=== PATIENT | male | born 1950 | race Caucasian/White ===

== ENCOUNTER 2021-01-24 08:20 | Outpatient (REF) | payer OTHER, SELFPAY ==
[2021-01-24 19:02] LABS: Anion Gap 8.7 mmol/L (3-11); BUN 15 mg/dL (7-18); CO2 28.3 mmol/L (21.0-32.0); Calcium 9.5 mg/dL (8.5-10.1); Calculated LDL 174 mg/dL (<100); Chloride 106 mmol/L (98-107); Cholesterol 248 mg/dL (<200); Glucose 102 mg/dL (74-106); HDL Cholesterol 38 mg/dL (40-60); Potassium 4.5 mmol/L (3.5-5.1); Sodium 143 mmol/L (136-145); Triglyceride 182 mg/dL (<150)
[2021-01-25 17:48] LABS: PSA, Screening <0.1 ng/mL (0.0-6.5)
== END 2021-01-24 08:21 | disposition home or self-care (01) ==
LOC: NCHCN 08:20
PROVIDERS: PCP Internal Medicine; Visit Provider Internal Medicine
DX: I10 Essential (primary) hypertension (principal); E78.5 Hyperlipidemia, unspecified; Z85.46 Personal history of malignant neoplasm of prostate; Z12.5 Encounter for screening for malignant neoplasm of prostate
CPT/HCPCS: 80048; 80061; 84153

== ENCOUNTER → 2022-12-09 07:45 | Outpatient (BNVA) | payer MEDICARE, SELFPAY | PROVIDERS: PCP Internal Medicine; Referring Provider Internal Medicine; Visit Provider Surgery | DX: K40.90 Unilateral inguinal hernia, without obstruction or gangrene, not specified as recurrent (principal) | CPT/HCPCS: 99202; 99203 ==

== ENCOUNTER 2022-12-17 08:38 | Day surgery (SDC) | payer MEDICARE, SELFPAY ==
[2022-12-17] VITALS (11 sets, daily range): BP systolic 99–142; BP diastolic 45–70; PULSE 51–69; RESP 10–22; TEMP 36–36.4; O2SAT 93–98; BMI 29.5
--- NOTE | 2022-12-17 06:24 | W.ANESPRE ---
General Info Date of Service Date Performed: 12/17/22 Height: 5 ft 4 in Weight: 78.018 kg Body Mass Index (BMI): 29.5 Surgical Procedure: Operation Date: 12/17/22 12:25 Proposed Procedure Side Surgeon p Herniorrhaphy Inguinal w/Mesh Left Radha Mohamud MD Meds Allergies and Home Medications Allergies Allergy/AdvReac Type Severity Reaction Status Date / Time No Known Allergies Allergy Unverified 12/16/22 10:17 Home Medication Medication Instructions Recorded atorvastatin 80 mg tablet (Lipitor) 80 mg PO DAILY 09/29/15 omega-3s 720 mg-dha 300 mg-epa 360 3 tab PO DAILY 09/29/15 mg-fish oil 1,200 mg capsule (Fish Oil) alprazolam 0.5 mg tablet 0.5 mg PO BID PRN 12/08/22 diazepam 10 mg tablet 10 mg PO DAILY PRN 12/08/22 losartan 50 mg tablet 50 mg PO DAILY 12/08/22 Current Visit Medications: Current Medications Generic Name Dose Route Start Last Admin Trade Name Renee PRN Reason Stop Dose Admin Acetaminophen 1,000 mg 12/17/22 06:00 Acetaminophen 500 Mg Tab PO 12/17/22 23:59 PREOP BEV Celecoxib 200 mg 12/17/22 06:00 Celecoxib 200 Mg Cap PO 12/17/22 23:59 PREOP BEV Gabapentin 600 mg 12/17/22 06:00 Gabapentin 300 Mg Cap PO 12/17/22 23:59 PREOP BEV Ringer's Solution 1,000 mls @ 80 mls/hr 12/17/22 06:00 IV 12/17/22 23:59 INFUSION BEV Cefazolin Sodium/Dextrose 2 gm in 50 mls @ 100 mls/hr 12/17/22 06:00 Ancef Duplex IVPB 12/17/22 23:59 PREOP BEV IV Miscellaneous Supplies 1 each 12/17/22 06:00 Iv Access IV 12/17/22 23:59 DIRECTED BEV Sodium Chloride 0 ml 12/17/22 06:00 Normal Saline Flush 10 Ml Syr IV 12/17/22 23:59 PRN PRN Sodium Chloride 0 ml 12/17/22 06:00 Normal Saline 10 Ml Vial IJ 12/17/22 23:59 DIRECTED PRN Sterile Water 0 ml 12/17/22 06:00 Water,Injection,Sterile 10 Ml Vial IJ 12/17/22 23:59 DIRECTED PRN PFSH Active Problems Active Problems: Problem Status Onset Code Left inguinal hernia K40.90 History of prostate cancer Z85.46 Hypertension I10 Former smoker Z87.891 Lower urinary tract symptoms R39.9 Medical History Medical History Anxiety and depression Chronic insomnia Chronic pain DJD (degenerative joint disease) of knee Erectile dysfunction Hyperlipidemia Pipe smoker Surgical History Surgical History History of prostatectomy Tobacco Smoking/Tobacco Use Status: Former Tobacco Use Alcohol Alcohol Intake: current Alcohol intake frequency: holidays/special occasions only Substance Use Substance use: Never Substance use type: does not use Vital Signs and Lab Results Vital Signs Most Recent Vital Signs in EMR: Temp Pulse Resp BP Pulse Ox 36.4 C L 65 16 142/55 H 97 12/17/22 09:07 12/17/22 09:07 12/17/22 09:07 12/17/22 09:07 12/17/22 09:07 Lab Results Blood Type / Crossmatch: No Data to Display Complete Blood Count: No Data to Display Complete Metabolic Panel: No Data to Display Liver Function Panel: No Data to Display Coagulation Panel: No Data to Display Cardiac Panel: No Data to Display Arterial Blood Gas: No Data to Display Venous Blood Gas: No Data to Display Pancreas Panel: No Data to Display Thyroid Panel: No Data to Display Infectious Disease: No Data to Display Blood Cultures: No Data to Display Toxicology Panel: No Data to Display Anesthesia Assessment and Plan Anesthesia History Personal History: No History of Anesthesia Complications Family History: No Family History of Anesthesia Complications Exercise Tolerance Exercise Tolerance: Metabolic Equivalents>4 Cardiac & Pulmonary Exam Cardiac Exam: Normal S1/S2 Heart Sounds Pulmonary Exam: Clear Bilateral Breath Sounds Implantable Cardiac Device Does patient have a Pacemaker or an ICD?: No Airway Exam Known Difficult Airway: No Mallampati Class: 3 Mouth Opening: Narrow (< 3cm) Thyromental Distance: Greater than 3 cm Neck Range of Motion: Full ROM Neck Circumference: Normal Teeth Condition: Normal Dentition and Removable Dentures/Plates Upper Airway Comments: many implants ASA Classification ASA Score: ASA 2 Emergency Case?: No NPO Status NPO Status: NPO Clears >2 hours, Solids >8 hours Anesthesia Plan Resuscitation Status: Full Code Anesthesia Technique: General Anesthesia Airway Planned: LMA Pain Management: Surgeon and patient request nerve block Monitors Used: Standard Monitors Preoperative Comments:: 72 yo male for left inguinal hernia repair. Sig PMHx: HTN (losartan), former smoker, anxiety/depression (alprazolam), prostatectomy, occ EtOH.
--- NOTE | 2022-12-17 06:52 | W.PM.PROGNOT ---
Date of Service Date of service: 12/17/22 Time of Service: 12:07 Assessment and Plan Assessment and plan (1) Left inguinal hernia: Status: Acute Assessment and plan: Oh is a pleasant 72-year-old gentleman with a left inguinal hernia which has progressively gotten larger and is starting to cause him more pain.? He denies any fevers, chills, nausea, vomiting or changes in bowel habits.? He has a past medical history of hypertension, hyperlipidemia and prostate cancer.? He had no issues with anesthesia during his prostatectomy.? He does not have a history of heart attacks or strokes.? He has no chest pain or palpitations.? He does not get short of breath with activity. Using a pamphlet we went over the pathophysiology of hernias as well as the repair.? We reviewed the risks, benefits and complications of the procedure.? After our discussion the patient had a good understanding of the procedure as well as the possible complications.? I supplied him with information regarding the surgery as well as the postop course and restrictions.? Risks, benefits and complications have been reviewed. Complications include but are not limited to bleeding, infection, injury to vas, vessels and nerves, injury to bowel, recurrence (3-5%), chronic pain and adverse reaction to medications. Questions were entertained and answered to their satisfaction and they wished to proceed. Subjective Subjective Interval history since last seen: Oh was seen in [facility] prior to his surgery. He is doing well. He has not had any new symptoms. He does not have any nausea or vomiting. He has not had any chest pain, palpitations or shortness of breath. We again reviewed the procedure in detail as well as the risks, benefits and complications. He asked questions which were answered to his flexion. Exam Resp Effort & Inspection: normal respiratory effort GI Inspection: visible herniation (left inguinal) Palpation: hernia (LIH- area marked) Time Spent with Patient Time Spent with Patient: <25 minutes Time was spent: counseling the patient
--- NOTE | 2022-12-17 06:52 | W.PM.OP ---
Date of service: 12/17/22 Time of Service: 13:07 Operative Note Operative Note DATE OF PROCEDURE: 12/17/22 PRE-OP DIAGNOSIS: Left inguinal hernia POST-OP DIAGNOSIS: same (Direct and indirect) PROCEDURE: Left inguinal hernia repair with mesh SURGEON: Radha Mohamud RUBBER STAMP MAKER: Joaquin Purcell ANESTHESIA TYPE: General LMA/ETT Refer to Anesthesia Record ESTIMATED BLOOD LOSS: 15 PATHOLOGY: none sent COMPLICATIONS: None Patient was transported to: PACU Patient's condition: stable Implants: PerFix Light Plug: REF- [id number] LOT- [id number] 2026-12-22 [facility] this is a visit to try it once or twice Indications: Oh is a pleasant 72-year-old gentleman with a left inguinal hernia which has progressively gotten larger and is starting to cause him more pain.? He denies any fevers, chills, nausea, vomiting or changes in bowel habits.? He has a past medical history of hypertension, hyperlipidemia and prostate cancer.? He had no issues with anesthesia during his prostatectomy.? He does not have a history of heart attacks or strokes.? He has no chest pain or palpitations.? He does not get short of breath with activity. Using a pamphlet we went over the pathophysiology of hernias as well as the repair.? We reviewed the risks, benefits and complications of the procedure.? After our discussion the patient had a good understanding of the procedure as well as the possible complications.? I supplied him with information regarding the surgery as well as the postop course and restrictions.? Risks, benefits and complications have been reviewed. Complications include but are not limited to bleeding, infection, injury to vas, vessels and nerves, injury to bowel, recurrence (3-5%), chronic pain and adverse reaction to medications. Questions were entertained and answered to their satisfaction and they wished to proceed. Findings: Direct and indirect hernias Procedure Description: After informed consent was obtained the patient was taken to the operating room and placed in a supine position. Monitors and SCDs were applied and a timeout was done. The patient's name, date of , procedure type, procedure site, allergies to medications, preoperative antibiotic, and DVT prophylaxis were all reviewed. Fire risk was assessed. Next anesthesia did a tap block on the left side under ultrasound guidance. Please see their separate dictation. Once anesthesia was done the abdomen was prepped and draped in a sterile surgical fashion. 0.5% Marcaine was injected into the dermis in the left lower quadrant. An incision was made with a 10 blade in the left lower quadrant. Dissection was done with cautery through the subcutaneous tissues and Laura's fascia down to the external oblique fascia. The external ring was identified and the external oblique fascia was opened sharply through the external ring. The cut fascia was grasped with hemostats the cord structures were identified and a [place] drain was placed around them. The ilioinguinal nerve was identified and cut. The cremasteric muscle was dissected away from the cord structures using both cautery and blunt dissection. A hernia sac was identified and removed from the cord structures using blunt dissection. There was a large cord lipoma which was removed. The hernia sac was suture ligated and amputated. The remnant was pushed back into the peritoneum. An XL plug was placed into the indirect defect and secured with 3-0 proline. A flat piece of mesh was then attached to the lacunar ligament using a 2-0 Prolene double armed suture. The mesh was secured laterally and medially with a 2-0 Prolene, with a running suture. The tails of the mesh were wrapped around the cord structures effectively cinching down the internal ring. Once the mesh was secured the tissues were irrigated with some normal saline. No bleeding was identified. The external oblique fascia was reapproximated using 2-0 Vicryl running suture. The Laura's fascia was reapproximated using interrupted 3-0 Vicryl. The dermis was reapproximated with a running 4-0 Vicryl. The skin was cleaned and dried and skin affix was applied. The patient was woken up and taken back to recovery in stable condition. There were no immediate complications. Sponge, instrument and needle counts were correct at the end of the case x2.
--- NOTE | 2022-12-17 06:54 | PDOC.DSDIS_ITS ---
Date of service: 12/17/22 Time of Service: 14:49 Discharge Plan Disposition Patient Disposition: Home Discharge Details Reason For Visit: left inguinal hernia Attending Provider: Radha Mohamud Primary Care Provider: Marisela Power Home Meds and New Rx's Prescriptions: New oxycodone 5 mg tablet 5 mg PO Q6H PRNQty: 14 0RF Continued alprazolam 0.5 mg tablet 0.5 mg PO BID PRN losartan 50 mg tablet 50 mg PO DAILY diazepam 10 mg tablet 10 mg PO DAILY PRN oezsh-2s-cly-epa-fish oil [Fish Oil] 1 EACH capsule 3 tab PO DAILY atorvastatin [Lipitor] 80 MG tablet 80 mg PO DAILY Discharge Instructions Instructions: Inguinal Hernia Repair (DC) Additional Instructions: Activity at Home after surgery: 1. Make sure you walk outside at least 4 times per day 2. You should be able to climb a flight of stairs 3. No driving while in pain or taking pain medications 4. No strenuous activity or heavy lifting for 4 weeks (open surgery) Diet, Nutrition, & wound healin. Avoid alcohol until after you are recovered from your surgery 2. Make sure to eat plenty of lean protein (meat, fish, eggs, cottage cheese, beans) 3. Eat a variety of fruits and vegetables. Eat plenty of high fiber foods to avoid constipation. 4. Drink plenty of liquids to stay hydrated and avoid constipation Pain Medications: 1. Tylenol 650mg every 6 hours as needed and Ibuprofen 600 mg every 6 hours as needed. You may alternate between the 2 medications every 3 hours 2. If a narcotic has been prescribed take as directed only for breakthrough pain For Constipation: 1. Take Milk of Magnesia or MiraLax as needed for constipation Other: 1. You may shower daily. Do not scrub the incisions 2. Do not soak the incisions for 1 week 3. You may alternate ice and heat as needed for pain and swelling Wound Care: 1. Keep the incisions clean and dry Please call our office if you develop: 1. Fevers >101.5 2. Nausea or Vomiting 3. Worsening pain 4. Redness and thick discharge from the wounds If after hours please call the Hospital at and ask to speak to the on-call surgeon Dr. Mohamud's cell: . If I do not answer I may not have service. Please call the hospital and speak to the inventory control associate surgeon Stand Alone Forms: Anesthesia Discharge InstMaribeth, Tim Dodd (DSU) Referrals: Radha Mohamud MD [ [facility] STAFF PHYSICIAN] - 12/30/22 8:00 am Activity:: as above Remove Dressings/Wound Care:: Do Not Remove Shower/Bathe:: 24 hours Diet:: As Tolerated Discharge Orders Discharge Orders: Discharge Order (Routine); Ordered 12/17/22 Ordered By: Radha Mohamud DS: Diagnosis Discharge Diagnosis (1) Left inguinal hernia: Status: Acute Asessment and Plan: The patient is doing well post-op from their left inguinal hernia repair surgery.? They are having no nausea or vomiting. They are tolerating liquids and a snack. The pt is not having any chest pain or SOB.? Their pain is adequately controlled. They have been able to urinate.? ?HEENT:? no eye pain/drainage/redness/swelling. Mild sore throat ?Cardio- NSR, no chest pain, BP stable- see VS record ?Pulm: no sob or productive cough. No hemoptysis ?Incision- dressing is c/d/i w/ no excessive bleeding or drainage ?I discussed with the patient the findings at the time of surgery and the patient?s progress. ?We reviewed expectations at home; what the patient could expect for recovery time, and in the post-operative period.? We discussed the importance of walking to avoid blood clots and pneumonia.? We discussed and reviewed the patient's post-operative wound care and dressing needs.?? We reviewed their step-barrios pain management plan, Rx called to the pharmacy of their choice.? We reviewed activity and limitations-see discharge instructions. We reviewed warning signs, and when to seek medical attention- see d/c instructions.?? Patient was given a postoperative follow-up appointment. Patient verbalized understanding of their postoperative instructions, how do to take care of themselves and their incision, and the pain management plan. Please see discharge instructions.?
[2022-12-17] MEDS: Gabapentin 300 MG CAP 600 MG PO (09:32)
[2022-12-17] MEDS: Acetaminophen 500 MG TAB 1000 MG PO (09:32)
[2022-12-17] MEDS: Celecoxib 200 MG CAP PO (09:33)
[2022-12-17] MEDS: Lactated Ringers 1,000 ML 80 ML IV (10:10)
[2022-12-17] MEDS: ceFAZolin 2 GM/50 ML BAG IVPB (11:52)
--- NOTE | 2022-12-17 12:08 | W.ANESNERVE ---
Nerve Block Single Injection Procedure Date and Time Date Performed: 12/17/22 Procedure Start: 12:00 Location Where Procedure Performed Procedure Location: Operating Room Procedure Stop: 12:05 Reason Performed: Postoperative Analgesia Requesting Provider: Radha Mohamud Timeout Performed Timeout Performed: Yes Monitoring Used ECG, Blood Pressure, SpO2 and ETCO2 Sterility Sterility: Hand Hygiene, Surgical Cap, Surgical Mask, Sterile Gloves and Chlorhexidine Sedation Given During Procedure Sedation Given (Indicate Dose Given): No Sedation given Patient Mental Status Patient Mental Status: Performed under general anesthesia Nerve Block 1st Nerve Block: Laterality: Left Block Type: TAP Unilateral Ultrasound Image Saved?: Yes Needle / Catheter Used: 120mm SonoPlex II Local Anesthetic Bolus (Indicate Dose Given): Bupivacaine 0.375% Dose:: 10 mL Additives (Indicate Dose Given): Epinephrine to make 1:200,000 (5mcg/ml) Dose:: 50 mcg and Precedex Dose:: 20 mcg Ultrasound: Sterile probe cover and gel used Nerve Stimulator: Not Used Paresthesia: None Procedure Tolerated: No Complications Procedure Outcome: Successful Performed By: Cyril Fuller
[2022-12-17] MEDS: Bupivacaine 0.25% Pres-Free 30 ML VIAL (12:10)
--- NOTE | 2022-12-17 13:13 | W.ANESPOSTOP ---
Postoperative Evaluation Date, Time and Location Date Performed: 12/17/22 Time Performed: 13:13 Patient Location: PACU Vital Signs Most Recent Imported Vital Signs: Most Recent Vital Signs Temp Pulse Resp BP Pulse Ox 36.3 C L 59 L 21 104/53 L 97 12/17/22 13:06 12/17/22 13:06 12/17/22 13:06 12/17/22 13:06 12/17/22 13:06 Assessment Mental Status: Awake (Alert & Oriented to Patient Baseline) Airway and Respiratory Function: Patent airway with normal (patient baseline) respiratory exam Cardiovascular Function: Hemodynamically Stable Hydration Status: Adequately Hydrated Nausea & Vomiting: No Nausea or Vomiting Pain: Pain is Moderate or Severe Postoperative Pain Management: Pain being addressed with medication Peripheral Nerve Block: Patient did not receive a nerve block
[2022-12-17] MEDS: fentaNYL 100 MCG/2 ML VIAL IVP ×2 (13:15→13:25)
[2022-12-17] MEDS: HYDROmorphone 2 MG/ML SYR IVP (13:49)
[2022-12-17] MEDS: Normal Saline 10 ML VIAL IJ (13:49)
== END 2022-12-17 15:35 | disposition home or self-care (01) ==
PROVIDERS: PCP Internal Medicine; Visit Provider Surgery
PROC: (CPT 49505; principal; 2022-12-17 12:15)
DX: K40.90 Unilateral inguinal hernia, without obstruction or gangrene, not specified as recurrent (principal); I10 Essential (primary) hypertension; E78.5 Hyperlipidemia, unspecified; F17.290 Nicotine dependence, other tobacco product, uncomplicated; D17.6 Benign lipomatous neoplasm of spermatic cord
CPT/HCPCS: 49505; 55520; C1781; J0171; J0690; J1100; J1170; J2405; J2704; J3010

== ENCOUNTER → 2022-12-30 07:51 | Outpatient (BNVA) | payer MEDICARE, SELFPAY | PROVIDERS: PCP Internal Medicine; Referring Provider Internal Medicine; Visit Provider Surgery | DX: Z48.817 Encounter for surgical aftercare following surgery on the skin and subcutaneous tissue (principal) ==